=== PATIENT | male | born 1990 | race Caucasian/White ===

== ENCOUNTER 2019-05-10 14:12 | Emergency (ER) | payer MEDICAID ==
[~2019-05-10] VITALS: Ht 172.7 cm; Wt 81.6 kg
[2019-05-10 14:14] VITALS: BP 122/83
--- NOTE | 2019-05-10 14:16 | NUR ---
[facility]
--- NOTE | 2019-05-10 14:21 | NUR ---
29 Y/O MALE BIB [facility] [employer] FOR PREBOOK. PT C/O RT SHOULDER PAIN, BACK, AND NECK PAIN S/P RESISTING ARREST FROM OFFICERS. NO DEFORMITIES NOTED. 8/10 ACHING PAIN X 1 HR. [place] [employer] AT CHAIRSIDE. RR EVEN AND UNLABORED. VSS
[2019-05-10] MEDS: IBUPROFEN 600 MG TAB PO ONE (15:02)
[2019-05-10 15:13] VITALS: BP 122/83
--- NOTE | 2019-05-10 15:13 | NUR ---
PATIENT BIB [place] [employer]. PATIENT EXAMINED BY GULSHAN VANEGAS. PATIENT MEDICALLY CLEARED AND RELEASED IN CUSTODY IN STABLE CONDITION. ORIGINAL PRE-BOOK FORM GIVEN TO OFFICER DELIA. RX OF IBURPROFEN AND BACITRACIN GIVEN
== END 2019-05-10 15:13 ==
LOC: MED 14:12
DX: T14.8XXA Other injury of unspecified body region, initial encounter (principal); R11.12 Projectile vomiting; R51 Headache; R07.89 Other chest pain; M54.14 Radiculopathy, thoracic region; R10.9 Unspecified abdominal pain; Z02.89 Encounter for other administrative examinations; X58.XXXA Exposure to other specified factors, initial encounter; Y93.89 Activity, other specified; Y92.89 Other specified places as the place of occurrence of the external cause; Y99.8 Other external cause status
CPT/HCPCS: 99283